=== PATIENT | female | born 1995 | race African-American/Black ===

== ENCOUNTER → 2021-02-28 | Emergency (ER) | payer MEDICAID ==
[~2021-02-28] VITALS: Ht 170.2 cm; Wt 81.6 kg
[2021-02-28 01:45] VITALS: BP_SYST 103
--- NOTE | 2021-02-28 02:07 | NUR ---
Patient ambulatory to bed 8 for evaluation
--- NOTE | 2021-02-28 03:15 | NUR ---
Patient left without being seen. unable to locate. MD Neal went into room and patient was not there.
== END | disposition left against medical advice (07) ==
LOC: SED 01:31
DX: M54.50 Low back pain, unspecified (principal); Z53.21 Procedure and treatment not carried out due to patient leaving prior to being seen by health care provider